=== PATIENT | female | born 2000 | race African-American/Black ===

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

== ENCOUNTER 2018-03-12 23:02 | Emergency (ER) | payer MEDICAID ==
[~2018-03-12 23:02] MED LIST: NAPR500T2 PO
[2018-03-12 23:32] VITALS: BP 129/88; PULSE 67; RESP 16; TEMP 98; O2SAT 100
--- NOTE | 2018-03-12 23:47 | PD ---
HPI Chief Complaint: GI Complaint Time Seen by Provider: 23:31 Travel History International Travel<30 days: No Contact w/Intl Traveler<30days: No Traveled to known affect area: No History of Present Illness HPI 18-year-old female complains of low abdominal pain, hemoptysis. Patient states that she has frequent lower abdominal pain pelvic pain associated with menstruation period monthly. Patient usually take ibuprofen and Tylenol for the pain. Patient states that she started having low abdominal pain cramping pain since yesterday. Patient states that her menstruation period started this morning. Patient has been taking ibuprofen and Tylenol for pain. Patient states that she had nausea with the pain. Patient states that she was in the shower this evening and started having a cough. Patient states that she noticed a small blood clot in the sputum once this evening. Patient denies any chest pain or shortness of breath. Patient denies any fever chills. Patient denies any dysuria frequency. PFSH Past Medical History Anemia: Yes ?: Not Social History Alcohol Use: No Tobacco Use: No Substance Use: No Allergies-Medications (Allergen,Severity, Reaction): Coded Allergies: No Known Allergies (Unverified , 03/12/18) Reported Meds & Prescriptions Reported Meds & Active Scripts Active Naproxen 500 Mg Tab 500 Mg PO BID 10 Days Review of Systems General / Constitutional: No: Fever Eyes: No: Visual changes HENT: No: Headaches Cardiovascular: No: Chest Pain or Discomfort Respiratory: Positive: Cough, Hemoptysis, No: Shortness of Breath Gastrointestinal: Positive: Abdominal Pain Genitourinary: No: Dysuria Musculoskeletal: No: Pain Skin: No Rash Neurologic: No: Weakness Psychiatric: No: Depression Endocrine: No: Polydipsia Hematologic/Lymphatic: No: Easy Bruising Physical Exam Narrative GENERAL: Well-nourished, well-developed patient. SKIN: Focused skin assessment warm/dry. HEAD: Normocephalic. EYES: No scleral icterus. No injection or drainage. NECK: Supple, trachea midline. No JVD or lymphadenopathy. CARDIOVASCULAR: Regular rate and rhythm without murmurs, gallops, or rubs. RESPIRATORY: Breath sounds equal bilaterally. No accessory muscle use. GASTROINTESTINAL: Abdomen soft, nondistended. Patient has mild tenderness on palpation lower abdomen. No rebound tenderness. No mass. MUSCULOSKELETAL: No cyanosis, or edema. BACK: Nontender without obvious deformity. No CVA tenderness. Neurologic exam normal. Data Data Last Documented VS Vital Signs Date Time Temp Pulse Resp B/P (MAP) Pulse Ox O2 Delivery O2 Flow Rate FiO2 03/12/18 23:32 98.0 67 16 129/88 (102) 100 Orders Orders Complete Blood Count With Diff (03/12/18 23:41) Comprehensive Metabolic Panel (03/12/18 23:41) Prothrombin Time / Inr (Pt) (03/12/18 23:41) Act Partial Throm Time (Ptt) (03/12/18 23:41) Lipase (03/12/18 23:41) Urinalysis - C+S If Indicated (03/12/18 23:41) Chest, Single Ap (03/12/18 23:41) Iv Access Insert/Monitor (03/12/18 23:41) Ecg Monitoring (03/12/18 23:41) Oximetry (03/12/18 23:41) Ed Urine Pregnancytest Poc (03/12/18 23:41) Urine Culture (03/12/18 23:45) Labs Laboratory Tests Test 03/12/18 23:45 White Blood Count 10.6 TH/MM3 Red Blood Count 4.44 MIL/MM3 Hemoglobin 8.9 GM/DL Hematocrit 28.8 % Mean Corpuscular Volume 64.8 FL Mean Corpuscular Hemoglobin 20.0 PG Mean Corpuscular Hemoglobin Concent 30.9 % Red Cell Distribution Width 18.3 % Platelet Count 367 TH/MM3 Mean Platelet Volume 8.0 FL Neutrophils (%) (Auto) 74.6 % Lymphocytes (%) (Auto) 17.6 % Monocytes (%) (Auto) 5.8 % Eosinophils (%) (Auto) 1.6 % Basophils (%) (Auto) 0.4 % Neutrophils # (Auto) 7.9 TH/MM3 Lymphocytes # (Auto) 1.9 TH/MM3 Monocytes # (Auto) 0.6 TH/MM3 Eosinophils # (Auto) 0.2 TH/MM3 Basophils # (Auto) 0.0 TH/MM3 CBC Comment DIFF FINAL Differential Comment Prothrombin Time 10.6 SEC Prothromb Time International Ratio 1.0 RATIO Activated Partial Thromboplast Time 25.4 SEC Urine Color YELLOW Urine Turbidity CLEAR Urine pH 7.5 Urine Specific [place] 1.026 Urine Protein 30 mg/dL Urine Glucose (UA) NEG mg/dL Urine Ketones NEG mg/dL Urine Occult Blood LARGE Urine Nitrite NEG Urine Bilirubin NEG Urine Urobilinogen 2.0 MG/DL Urine Leukocyte Esterase TRACE Urine RBC /hpf Urine WBC 9 /hpf Urine Squamous Epithelial Cells 1 /hpf Urine Bacteria RARE /hpf Microscopic Urinalysis Comment CULTURE INDICATED Blood Urea Nitrogen 11 MG/DL Creatinine 0.76 MG/DL Random Glucose 105 MG/DL Total Protein 8.0 GM/DL Albumin 3.3 GM/DL Calcium Level 8.7 MG/DL Alkaline Phosphatase 75 U/L Aspartate Amino Transf (AST/SGOT) 15 U/L Alanine Aminotransferase (ALT/SGPT) 15 U/L Total Bilirubin 0.2 MG/DL Sodium Level 142 MEQ/L Potassium Level 4.2 MEQ/L Chloride Level 110 MEQ/L Carbon Dioxide Level 26.2 MEQ/L Anion Gap 6 MEQ/L Estimat Glomerular Filtration Rate 117 ML/MIN Lipase 97 U/L MDM Medical Decision Making Medical Screen Exam Complete: Yes Emergency Medical Condition: Yes Interpretation(s) 12:53 AM. Chest x-ray shows no acute pathology. CBC WBC 10.6. Hemoglobin 8 point hematocrit 20.8. MCV 64.8. 74 neutrophil. CMP within normal limits. UA positive for RBC WBC and rare bacteria. Urine test negative. Differential Diagnosis Differential diagnosis including dysmenorrhea, UTI, threatened AB, ectopic , bronchitis, pneumonia. Narrative Course 18-year-old female with abdominal pain, blood per sputum. Patient is on her menstruation cycle. Patient is on ibuprofen and Tylenol for pain. Diagnosis Primary Impression: Dysmenorrhea Patient Instructions: General Instructions Additional Instructions: Continue with ibuprofen as needed her menstruation pain. Follow-up with environmental department manager. Return if persistent coughing problem, chest pain shortness of breath or coughing up blood. Med/Other Pt SpecificInfo: Prescription(s) given Scripts Ibuprofen (Ibuprofen) 600 Mg Tab 600 MG PO TID for Pain, #30 TAB 0 Refills Prov: Ramy Kumar MD 03/13/18 Disposition: 01 DISCHARGE HOME Condition: Stable Ramy Kumar MD Mar 12, 2018 23:47
[2018-03-13 00:10] LABS: AUTOMATED NEUTROPHIL # 7.9 TH/MM3 (1.8-7.7); BASOPHIL % 0.4 % (0.0-2.0); EOSINOPHIL # 0.2 TH/MM3 (0-0.4); EOSINOPHIL % 1.6 % (0.0-4.0); HEMATOCRIT 28.8 % (35.0-46.0); HEMOGLOBIN 8.9 GM/DL (11.6-15.3); LYMPH % 17.6 % (9.0-44.0); LYMPHOCYTE # 1.9 TH/MM3 (1.0-4.8); MEAN CELL VOLUME 64.8 FL (80.0-100.0); MEAN CORPUSCULAR HGB CONC 30.9 % (32.0-36.0); MONO % 5.8 % (0.0-8.0); MONOCYTE # 0.6 TH/MM3 (0-0.9); NEUT % 74.6 % (16.0-70.0); PLATELET COUNT 367 TH/MM3 (150-450); RED BLOOD COUNT 4.44 MIL/MM3 (4.00-5.30); RED CELL DISTRIBUTION WIDTH 18.3 % (11.6-17.2); WHITE BLOOD COUNT 10.6 TH/MM3 (4.0-11.0)
[2018-03-13 00:11] LABS: BACTERIA, URINE RARE /hpf; BILIRUBIN, URINE NEG (NEG); BLOOD, URINE LARGE (NEG); GLUCOSE,URINE NEG (NEG); KETONE, URINE NEG (NEG); NITRITE,URINE NEG (NEG); PH, URINE 7.5 (5.0-8.5); SQUAMOUS EPITHELIAL CELL URINE 1 /hpf (0-5); URINE COLOR YELLOW (YELLW/STRAW); URINE LEUKOCYTE ESTERASE TRACE (NEG)
--- NOTE | 2018-03-13 00:12 | RADRPT ---
EXAM DATE/TIME: 03/12/2018 23:50 [facility] COMPARISON: CHEST SINGLE AP, October 19, 2017, 19:35. INDICATIONS : Hemoptysis. MEDICAL HISTORY : None. SURGICAL HISTORY : None. ENCOUNTER: Initial ACUITY: 1 day PAIN SCORE: 0/10 LOCATION: Bilateral chest FINDINGS: A single view of the chest demonstrates the lungs to be symmetrically aerated without evidence of mas s, infiltrate or effusion. The cardiomediastinal contours are unremarkable. Osseous structures are intact. CONCLUSION: Normal examination. Leonel Zamarripa Jr., MD on March 13, 2018 at 0:11 Board Certified Radiologist. This report was verified electronically.
[2018-03-13 00:27] LABS: ALBUMIN 3.3 GM/DL (3.4-5.0); ALT (GPT) 15 U/L (9-42); AST (GOT) 15 U/L (16-38); BICARBONATE 26.2 MEQ/L (21.0-32.0); BLOOD UREA NITROGEN 11 MG/DL (7-18); CALCIUM 8.7 MG/DL (8.5-10.1); CHLORIDE 110 MEQ/L (98-107); CREATININE 0.76 MG/DL (0.50-1.00); GLOMERULAR FILTRATION RATE 117 ML/MIN (>89); GLUCOSE,RANDOM 105 MG/DL (74-106); SODIUM (NA) 142 MEQ/L (136-145)
[2018-03-13 00:30] LABS: ALKALINE PHOSPHATASE 75 U/L (45-117); PROTHROMBIN TIME - PATIENT 10.6 SEC (9.8-11.6); TOTAL BILIRUBIN ADULT 0.2 MG/DL (0.2-1.0)
[2018-03-13] MEDS ORDERED: IBUP-232 PO (00:58)
== END 2018-03-13 01:46 | disposition home or self-care (01) ==
LOC: NEPC 23:02
DX: N94.6 Dysmenorrhea, unspecified (principal); R82.99 Other abnormal findings in urine; R05 Cough; Z79.899 Other long term (current) drug therapy
CPT/HCPCS: 71045; 80053; 81001; 83690; 84703; 85025; 85610; 85730; 87086; 99284